=== PATIENT | female | born 1950 | race Hispanic/Latino ===

== ENCOUNTER → 2020-07-10 | Day surgery (SDC) | payer MEDICARE, OTHER ==
[2020-07-06 17:07] LABS: BASOPHILS % 0.6 % (0.0-1.0); EOSINOPHILS # (AUTO) 0.1 (0.0-0.4); EOSINOPHILS % 1.3 % (0.0-6.0); HEMATOCRIT 32.6 % (34.2-44.1); HEMOGLOBIN 10.5 g/dL (12.0-16.0); LYMPHOCYTES # (AUTO) 1.5 (1.0-3.2); LYMPHOCYTES % 32.5 % (18.0-39.1); MEAN CORPUSCULAR HEMOGLOBIN 30.5 pg (28-32); MEAN CORPUSCULAR HGB CONC 32.2 g/dL (31-35); MEAN CORPUSCULAR VOLUME 94.8 fL (81-99); MONOCYTES # (AUTO) 0.5 (0.2-0.8); MONOCYTES % 9.8 % (4.4-11.3); NEUTROPHILS # (AUTO) 2.6 (2.1-6.9); NEUTROPHILS % 55.6 % (38.7-80.0); PLATELET COUNT 209 x10e3/uL (140-360); RED BLOOD COUNT 3.44 x10e6/uL (3.6-5.1); RED CELL DISTRIBUTION WIDTH 12.6 % (11.7-14.4)
[2020-07-06 17:27] LABS: ALBUMIN 3.7 g/dL (3.5-5.0); ANION GAP 12.3 mmol/L (8-16); CALCIUM 9.5 mg/dL (8.4-10.2); CREATININE, SERUM 1.04 mg/dL (0.57-1.11); POTASSIUM 4.3 mmol/L (3.5-5.1)
[~2020-07-10] VITALS: Ht 149.9 cm; Wt 54.4 kg
[2020-07-10] VITALS (7 sets, daily range): BP systolic 124–184; BP diastolic 66–82
[~2020-07-10] MED LIST: ALPRAZOLAM 0.5 MG TAB ONE; ASPIRIN 325 MG TAB ONE; DIPHENHYDRAMINE HCL 25 MG CAP ONE; FENTANYL CITRATE/PF 100MCG/2 ML INJ ONE; GLIPIZIDE5 MG PO; HEPARIN SOD (PORCINE) 1000 UNIT/ML 30ML ONE; HEPARIN SOD/SOD CHLORIDE 2,000 ML ONE; IOPAMIDOL 300MG/ML 100 ML INFUS..BTL IV ONE; LEVEMIR FL100 UNIT/1 SC; LIDOCAINE HCL 2% LOCAL 20 ML VIAL ONE; LIPITOR20 MG PO; METOPROLOL TART25 MG PO; MIDAZOLAM HCL 2 MG/2 ML VIAL ONE; PRASUGREL 10 MG TAB ONE; SODIUM CHLORIDE 0.9% 1000ML 1,000 ML ONE
== END | disposition home or self-care (01) ==
LOC: CATH LAB 12:27
PROVIDERS: ATTEND Internal Medicine Interventional Cardiology
DX: I70.212 Atherosclerosis of native arteries of extremities with intermittent claudication, left leg (principal); E11.9 Type 2 diabetes mellitus without complications; E78.00 Pure hypercholesterolemia, unspecified; Z79.84 Long term (current) use of oral hypoglycemic drugs; Z79.4 Long term (current) use of insulin
CPT/HCPCS: 36415; 37186; 37225; 37229; 75625; 75716; 80053; 85025; C1714; C1725; C1760; C1769 ×2; C1887 ×2; C2623; J1644; J2001; J2250; J3010; J7030; Q9967; 37224; 37228; 75630; 99152; 99153

== ENCOUNTER → 2020-07-31 | Day surgery (SDC) | payer MEDICARE, OTHER ==
[2020-07-26 13:33] LABS: BASOPHILS % 0.7 % (0.0-1.0); EOSINOPHILS # (AUTO) 0.1 (0.0-0.4); EOSINOPHILS % 1.2 % (0.0-6.0); HEMATOCRIT 31.4 % (34.2-44.1); HEMOGLOBIN 10.3 g/dL (12.0-16.0); LYMPHOCYTES # (AUTO) 1.5 (1.0-3.2); MEAN CORPUSCULAR HEMOGLOBIN 30.7 pg (28-32); MEAN CORPUSCULAR HGB CONC 32.8 g/dL (31-35); MEAN CORPUSCULAR VOLUME 93.5 fL (81-99); MONOCYTES # (AUTO) 0.4 (0.2-0.8); MONOCYTES % 7.8 % (4.4-11.3); NEUTROPHILS # (AUTO) 3.6 (2.1-6.9); NEUTROPHILS % 62.8 % (38.7-80.0); PLATELET COUNT 226 x10e3/uL (140-360); RED BLOOD COUNT 3.36 x10e6/uL (3.6-5.1); RED CELL DISTRIBUTION WIDTH 12.4 % (11.7-14.4)
[2020-07-26 13:56] LABS: ALBUMIN 3.6 g/dL (3.5-5.0); ANION GAP 13.6 mmol/L (8-16); CALCIUM 9.2 mg/dL (8.4-10.2); CREATININE, SERUM 1.16 mg/dL (0.57-1.11); POTASSIUM 4.6 mmol/L (3.5-5.1)
[~2020-07-31] VITALS: Ht 149.9 cm; Wt 54.9 kg
[2020-07-31] VITALS (10 sets, daily range): BP systolic 110–207; BP diastolic 67–98
[~2020-07-31] MED LIST changes: -ASPIRIN 325 MG TAB ONE; -HEPARIN SOD (PORCINE) 1000 UNIT/ML 30ML ONE; +LABETALOL HCL 20 ML ONE; -PRASUGREL 10 MG TAB ONE
--- NOTE | 2020-07-31 11:11 | NUR ---
1111am Recovery phase initiated Rt SFA,stent,hawk per Dr Elkins to rm #12 bedside report received from Vangie Telles RN. Alert oriented and appropriate, PERRLA, respirations even and unlabored to room air. Pulses x4 extremities equal . No s/s of hematoma or gross abnormality to left Perclose site. Down time till 1400pm. Skin warm and dry integrity appears intact. IV o.9Ns to left hand, presents healthy w/o s/s of infiltration or complaint. Abdomen soft and supple. pt offered toileting, denies need to urinate or defecate. No personal affects with patient. Family at bedside Pt understanding of POC. Bedside monitoring re-initiated in recovery bay. Currently w/o complaint of pain or need. Call light within reach, bed low and locked, side rails up x2. pt personal mask for COVID-19 mitigation. keaton/rn
--- NOTE | 2020-07-31 12:56 | Operative Report ---
DATE OF PROCEDURE: 07/31/2020 SURGEON: James Elkins MD INDICATION: Peripheral arterial disease, claudication, and critical limb ischemia. COMPLICATIONS: None. BLOOD LOSS: Minimal. RECOMMENDATIONS: Dual antiplatelet therapy for life. PROCEDURES PERFORMED: 1. Third-order catheter placement in the left femoral artery the right superficial femoral artery with unilateral extremity angiogram. 2. Atherectomy of the right femoral artery with balloon angioplasty. 3. Secondary thrombectomy of the right femoral artery. 4. Conscious sedation, 65 minutes. 5. Deployment of left groin Perclose closure device. DESCRIPTION OF PROCEDURE: Access obtained in the left femoral artery. A 6-Swedish sheath was placed, the patient received intravenous heparin for anticoagulation. The sheath was advanced from the right superficial femoral artery. Angiography of the right leg demonstrated 70% to 80% stenosis of the distal right superficial femoral artery. These lesions were crossed using a Glidewire. Wire was exchanged to [place] wire. Directional atherectomy using a HawkOne device was performed with large amounts of visible thrombus for which manual aspiration thrombectomy was needed. Balloon angioplasty with a 5 x 150 drug-coated balloon resulted in excellent end result, less than 10% residual stenosis, two-vessel runoff via the peroneal and posterior tibial arteries. No complications. Left groin repaired using Perclose closure device, the patient discharged home the same day. James Elkins MD [facility] /[id number]
--- NOTE | 2020-07-31 13:00 | NUR ---
1300 Hand off from Angelo Rn pt continues to trend elevated bp Void qs on bed pain and Angelo will medicate Labetalol 20 ivp for trend Pt also has BANDA as per family member reported. Left Perclose site stable No gross issue with bleeding Pedal pulses remain unchanged. ds/rn
--- NOTE | 2020-07-31 13:10 | NUR ---
1310 bp trending with elevation medicate 20 Labetalol ivp per Angelo Rn B/p 189/91 cuff repositioned x2.ds/rn
--- NOTE | 2020-07-31 13:15 | NUR ---
1315p Bp trend better patient has no other c/o of Brown or discomfort Will continue to monitor till pt discharged at 1400pm pt and family aware that f/o 2wks important and dc paperwork and instructions reviewed with daughter at bedside. ds/rn
--- NOTE | 2020-07-31 14:00 | NUR ---
1400pm----Nursing Discharge Note---left-Femoral Perclose Pt meets discharge criteria. VS wnl, alert and oriented. Pt and Family Understands discharge instruction. Overall general assess w/o gross outliers. Skin warm, dry, and intact. Right groin dressing soft w/o s/s of hematoma. Pedal pulses unchanged. IV removed and appears distal tip is intact. Pt maintains mask on for COVID 19 precautions being taken by wheel chair to awaiting car. Transfers w/o gross distress with discharge paperwork in hand. Denies any Brown or pain. Bp stabilized with on prn dose of bp med in post recovery phase.Family and pt aware of importance f/o care appt to be scheduled per pt.in 2wks.keaton/rn
== END | disposition home or self-care (01) ==
LOC: CATH LAB 08:56
PROVIDERS: ATTEND Internal Medicine Interventional Cardiology
DX: I70.221 Atherosclerosis of native arteries of extremities with rest pain, right leg (principal); E78.00 Pure hypercholesterolemia, unspecified; E11.9 Type 2 diabetes mellitus without complications; Z79.4 Long term (current) use of insulin; Z01.812 Encounter for preprocedural laboratory examination; Z11.59 Encounter for screening for other viral diseases
CPT/HCPCS: 36415; 37186; 37225; 75710; 80053; 85025; C1714; C1760; C1769 ×2; C1887 ×2; C2623; J2001; J2250; J3010; J3490; J7030; U0002; 36247; 37228; 99152; 99153; Q9967

== ENCOUNTER 2024-11-05 12:18 | Emergency (ER) | payer MEDICARE ==
[~2024-11-05] VITALS: Ht 147.3 cm; Wt 70.3 kg
[~2024-11-05 12:18] MED LIST changes: -ALPRAZOLAM 0.5 MG TAB ONE; -DIPHENHYDRAMINE HCL 25 MG CAP ONE; -FENTANYL CITRATE/PF 100MCG/2 ML INJ ONE; -HEPARIN SOD/SOD CHLORIDE 2,000 ML ONE; -IOPAMIDOL 300MG/ML 100 ML INFUS..BTL IV ONE; -LABETALOL HCL 20 ML ONE; -LIDOCAINE HCL 2% LOCAL 20 ML VIAL ONE; -MIDAZOLAM HCL 2 MG/2 ML VIAL ONE; -SODIUM CHLORIDE 0.9% 1000ML 1,000 ML ONE
[2024-11-05 12:26] VITALS: PULSE 82; RESP 15; TEMP 99.2; O2SAT 100
[2024-11-05] MEDS: TRAMADOL HCL 50 MG TAB PO ONE (13:49)
[2024-11-05] MEDS ORDERED: PLAVIX75 MG PO (15:07)
== END 2024-11-05 16:07 | disposition home or self-care (01) ==
LOC: ER 12:22
DX: M79.672 Pain in left foot (principal); I73.9 Peripheral vascular disease, unspecified; I10 Essential (primary) hypertension; E11.9 Type 2 diabetes mellitus without complications; E78.5 Hyperlipidemia, unspecified
CPT/HCPCS: 93926; 99284